=== PATIENT | female | born 1960 | race Caucasian/White ===

== ENCOUNTER 2017-04-05 14:46 | Emergency (ER) | END 2017-04-05 17:02 | disposition left against medical advice (07) | LOC: ERS 14:46 | DX: Z53.21 Procedure and treatment not carried out due to patient leaving prior to being seen by health care provider (principal) ==

== ENCOUNTER 2017-06-13 21:14 | Emergency (ER) | payer SELFPAY ==
[2017-06-13 21:42] LABS: Bilirubin Negative (Negative); Blood, Urine Negative (Negative); Clarity CLEAR (Clear); Glucose, Urine (Dipstick) Negative (Negative); Leukocyte Negative (Negative); Nitrite Negative (Negative); Protein, Urine (Dipstick) Negative (Neg-Trace); Specific Gravity, Urine 1.013 (1.002-1.036); Urobilinogen 0.2 mg/dL (0.2-1.0)
== END 2017-06-13 22:18 | disposition home or self-care (01) ==
LOC: ERS 21:14
DX: K29.70 Gastritis, unspecified, without bleeding (principal); F31.9 Bipolar disorder, unspecified; F41.9 Anxiety disorder, unspecified; F17.210 Nicotine dependence, cigarettes, uncomplicated
CPT/HCPCS: 81003; 99283

== ENCOUNTER 2018-12-27 07:41 | Outpatient (CLI) | payer OTHER ==
--- NOTE | 2018-12-27 08:20 | RAD ---
EXAM: Cervical spine: 3 views lateral views were obtained with flexion and extension INDICATIONS: Neck pain COMPARISON: None. FINDINGS: Moderate degenerative changes are noted at C5-6 with disc narrowing, osteophytes, and poste rior spondylosis. There is a posterior listhesis at this level measured at 3 mm. This may reduce slightly with flexion. The other levels are unremarkable. The other disc spaces are preserved. Minimal degenerative change a t the other levels. IMPRESSION: Degenerative changes C5-6 with posterior listhesis as described.
--- NOTE | 2018-12-27 10:09 | MRI ---
MRI CERVICAL SPINE WITHOUT CONTRAST: Date: 12/27/18 INDICATION: Neck pain. Upper extremity pain. FINDINGS: There is mild anterior wedging at C5. Anterior osteophytes. Cervical vertebra otherwise maintain heig ht. Slight posterolisthesis at C4-5 and at C5-6. 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 No significant disc bulge or spondylosis at C2-3 or C3-4. At C4-5, mild posterolisthesis as stated above. There is posterior disc bulge and spondylosis, which is more prominent centrally and to the left. These changes compress the anterior cord producing arnoldo ening of the anterior cord more prominent to the left of midline. At C5-6, there is mild posterolisthesis as noted above. A posterior disc bulge and spondylytic change abut the anterior cord. Mild bilateral foraminal narrowing due to facet and uncinate hypertrophy. At C6-7, no significant disc bulge or spondylosis. At C7-T1, no significant abnormality. The cervical cord signal appears normally maintained. IMPRESSION: Degenerative disc changes with posterior disc bulge and spondylosis are noted at C4-5 and C5-6 with i mpingement on the cord most pronounced at C4-5 as described above. POS: [facility]
== END 2018-12-27 07:42 | disposition home or self-care (01) ==
LOC: TBSIIMAG 07:41
PROVIDERS: ATTEND Neurological Surgery
DX: M54.2 Cervicalgia (principal); M47.812 Spondylosis without myelopathy or radiculopathy, cervical region; M43.12 Spondylolisthesis, cervical region; M50.321 Other cervical disc degeneration at C4-C5 level; M25.80 Other specified joint disorders, unspecified joint
CPT/HCPCS: 72040; 72141